=== PATIENT | female | born 1965 | race Caucasian/White ===

== ENCOUNTER 2024-08-18 09:42 | Outpatient (CLI) | payer OTHER | END 2024-08-18 09:45 | disposition home or self-care (01) | LOC: SONOGRAMA 09:42 | PROVIDERS: ATTEND Pathology Anatomic Pathology & Clinical Pathology | DX: D34 Benign neoplasm of thyroid gland (principal); D44.0 Neoplasm of uncertain behavior of thyroid gland; E04.1 Nontoxic single thyroid nodule ==